=== PATIENT | male | born 2000 | race American Indian/Alaskan Native ===

== ENCOUNTER 2020-01-07 06:07 | Emergency (ER) | payer MEDICAID, OTHER ==
[2020-01-07 06:27] VITALS: BP 153/110
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
[2020-01-07] MEDS ORDERED: KETOROLAC 30 MG/1 ML INJ IM ONE (09:03)
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
== END 2020-01-07 10:20 | disposition home or self-care (01) ==
LOC: ED 06:07
DX: S63.615A Unspecified sprain of left ring finger, initial encounter (principal); M54.5 Low back pain; M25.531 Pain in right wrist; M25.532 Pain in left wrist; Z79.899 Other long term (current) drug therapy; Y04.2XXA Assault by strike against or bumped into by another person, initial encounter; Y93.89 Activity, other specified; Y92.89 Other specified places as the place of occurrence of the external cause; Y99.8 Other external cause status
CPT/HCPCS: 72100; 73100; 73120; 96372; 99283; J1885